=== PATIENT | male | born 1955 | race Caucasian/White ===

== ENCOUNTER 2017-09-02 14:42 | Inpatient (IN) | payer MEDICARE ==
[~2017-09-02] VITALS: Ht 167.6 cm; Wt 87.1 kg
[2017-09-02 14:46] VITALS: BP 169/85
[2017-09-02] MEDS ORDERED: OXYCONTIN20 M1 PO (15:08)
[2017-09-02] MEDS ORDERED: LIORESAL 10 MG10 MG PO (15:09)
[2017-09-02] MEDS ORDERED: ALBUTEROL2.5 MG/31 INH (15:09)
[2017-09-02] MEDS ORDERED: AZITHROMYCIN 2250 MG PO (15:10)
[2017-09-02] MEDS ORDERED: ZOLOFT50 MG PO (15:10)
[2017-09-02] MEDS ORDERED: TRAMADOL 50 MG50 MG PO (15:10)
[2017-09-02] MEDS ORDERED: LYRICA 75 MG CA75 MG PO (15:11)
[2017-09-02] MEDS ORDERED: FLEXERIL PO (15:11)
[2017-09-02] MEDS ORDERED: PREDNISONE 20 M20 MG PO (15:11)
[2017-09-02] MEDS ORDERED: ZESTRIL20 MG PO (15:12)
[2017-09-02] MEDS ORDERED: HYDROCHLOROTHIA25 M2 PO (15:12)
[2017-09-02] MEDS ORDERED: CEFDINIR300 MG PO (15:14)
[2017-09-02] MEDS ORDERED: SYMBICORT160 MCG/4. INH (15:17)
[2017-09-02] MEDS ORDERED: BREO ELLIPTA 21 EACH INH (15:17)
[2017-09-02 15:21] LABS: HEMATOCRIT 39.4 % (42.0-52.0); HEMOGLOBIN 13.1 gm/dL (14.0-18.0); MCH 32.3 pg (26.0-34.0); MCHC 33.2 g/dL (28.0-37.0); MCV 97.1 fL (80.0-100.0); MPV 7.7 fl. (7.2-11.1); NUCLEATED RBCS 0 /100WBC; PLATELET COUNT* 349 thou/uL (150-400); RBC 4.06 mil/uL (4.50-6.00); RDW-CV 13.9 % (10.5-14.5); WBC 14.6 thou/uL (4.0-11.0)
[2017-09-02 15:32] LABS: ANION GAP 8 mmol/L (7-16); BUN 16 mg/dL (7-18); CALCIUM 9.6 mg/dL (8.5-10.1); CHLORIDE 98 mmol/L (98-107); CO2 33 mmol/L (21-32); CREATININE 0.9 mg/dL (0.6-1.3); GLUCOSE 180 mg/dL (70-99); POTASSIUM 4.2 mmol/L (3.5-5.1); SODIUM 139 mmol/L (136-145)
[2017-09-02 15:40] LABS: APTT 25.9 Seconds (25.0-31.3); PROTIME 9.9 Seconds (9.20-11.50)
[2017-09-02 15:44] LABS: ALBUMIN 3.7 g/dL (3.4-5.0); ALKALINE PHOSPHATASE 68 U/L (46-116); NT-PRO BRAIN NAT PEPTIDE 17 pg/mL (<300); SGOT 23 U/L (15-37); SGPT 44 U/L (30-65); TOTAL BILIRUBIN 0.2 mg/dL (<0.1-1.0); TOTAL PROTEIN 7.8 g/dL (6.4-8.2); TROPONIN-I LEVEL <0.06 ng/mL (<0.06)
[2017-09-02 16:01] LABS: ABSOLUTE LYMPHOCYTES 1.2 thou/uL (0.8-5.3); ABSOLUTE MONOCYTES 0.4 thou/uL (0.0-1.2); PLATELET ESTIMATE ADEQUATE
[2017-09-02 17:00] VITALS: BP 162/97
[2017-09-02 17:16] LABS: HCO3 30.2 mmol/L (22.0-26.0)
[2017-09-02 18:03] VITALS: BP 144/119
[2017-09-02 18:32] LABS: PCO2 52.2 mmHg (35.0-45.0); PO2 167.5 mmHg (75.0-100.0)
[2017-09-02 20:00] VITALS: BP 137/108
[2017-09-03] VITALS: BP 179/80
[2017-09-03 04:00] VITALS: BP 131/77
[2017-09-03 04:06] LABS: GLYCOHEMOGLOBIN (HGB A1C) 6.6 % (4.8-5.6)
[2017-09-03 05:22] LABS: HEMATOCRIT 36.7 % (42.0-52.0); HEMOGLOBIN 12.2 gm/dL (14.0-18.0); MCH 32.3 pg (26.0-34.0); MCHC 33.2 g/dL (28.0-37.0); MCV 97.3 fL (80.0-100.0); MPV 8.9 fl. (7.2-11.1); RBC 3.77 mil/uL (4.50-6.00); WBC 14.2 thou/uL (4.0-11.0)
[2017-09-03 05:31] LABS: CALCIUM 9.1 mg/dL (8.5-10.1); CREATININE 0.7 mg/dL (0.6-1.3); MAGNESIUM 1.5 mg/dL (1.8-2.4)
[2017-09-03 07:55] VITALS: BP 149/82
[2017-09-03 11:46] VITALS: BP 140/76
--- NOTE | 2017-09-03 14:01 | EKG ---
[place] [address] ELECTROCARDIOGRAM REPORT Name: CLARKMELISSAHUMA Gonzalez SR Room: [address] ADM IN M.R.#: [id number] Admission: 09/02/17 Attend Phys: Lalo Sousa MD Discharge: Date of : 51 Report #: [id number] THIS REPORT FOR: //name// [facility] ED Test Date: 2017-09-02 Test Time: 14:53:28 Pat Name: MELISSA CLARK Department: Room: [address] Gender: M Press Tender Smoke Signal: Patti GILBERT : 1955 Requested By: Mell Summers Order Number: [id number] Edwin MD: Owen El Measurements Intervals [place] Rate: 88 P: 63 MD: 139 QRS: 48 QRSD: 77 T: 52 QT: 332 QTc: 402 Interpretive Statements Sinus rhythm Baseline wander in lead(s) V2,V3,V4 No previous ECG available for comparison Electronically Signed On 09-03-2017 14:01:03 CDT by Owen El [email or web address] <ELECTRONICALLY SIGNED> By: Owen El MD, [facility] 09/03/17 1401 1453 1453 Owen El MD, [facility] /EPI
[2017-09-03 15:41] VITALS: BP 110/54
[2017-09-03 23:57] VITALS: BP 119/55
[2017-09-04 04:29] VITALS: BP 133/70
[2017-09-04 05:43] LABS: ABSOLUTE LYMPHOCYTES 0.6 thou/uL (0.8-5.3); ABSOLUTE MONOCYTES 0.1 thou/uL (0.0-1.2); ABSOLUTE NEUTROPHILS 12.3 thou/uL (1.6-8.1); BASOPHILS 0.1 %; HEMATOCRIT 33.8 % (42.0-52.0); HEMOGLOBIN 11.1 gm/dL (14.0-18.0); LYMPHOCYTES 4.7 %; MCH 31.7 pg (26.0-34.0); MCHC 32.8 g/dL (28.0-37.0); MCV 96.8 fL (80.0-100.0); MONOCYTES 0.8 %; MPV 7.7 fl. (7.2-11.1); NUCLEATED RBCS 0 /100WBC; PLATELET COUNT* 294 thou/uL (150-400); POLYS 94.4 %; RDW-CV 13.8 % (10.5-14.5); WBC 13.1 thou/uL (4.0-11.0)
[2017-09-04 05:57] LABS: BE 1.7 mmol/L (-2 to +3); PCO2 45.2 mmHg (35.0-45.0); PO2 102.3 mmHg (75.0-100.0); pH 7.394 (7.340-7.450)
[2017-09-04 07:20] VITALS: BP 122/86
[2017-09-04 11:31] VITALS: BP 128/80
[2017-09-04 15:23] VITALS: BP 121/52
[2017-09-04 16:00] VITALS: BP 136/66
[2017-09-04 20:00] VITALS: BP 136/67
[2017-09-05 04:00] VITALS: BP 118/55
[2017-09-05 08:00] VITALS: BP 128/63
[2017-09-05 12:02] VITALS: BP 117/55
[2017-09-05 16:14] VITALS: BP 108/53
[2017-09-05 20:20] VITALS: BP 146/71
[2017-09-06 00:10] VITALS: BP 104/75
[2017-09-06 04:00] VITALS: BP 157/77
[2017-09-06 07:58] VITALS: BP 145/71
[2017-09-06] MEDS ORDERED: LEVAQUIN 750 M750 MG PO (10:02)
[2017-09-06] MEDS ORDERED: PREDNISONE 10 M10 MG PO (10:03)
[2017-09-06 10:12] VITALS: BP 145/71
--- NOTE | 2017-09-06 10:18 | CON ---
[address] [address] CONSULTATION Name: MELISSA CLARK SR Room: [address] IN .R.#: [id number] Admission: 09/02/17 Attend Phys: Lalo Sousa MD Discharge: Date of : 51 Report #: [id number] THIS REPORT FOR: //name// CC: Lalo Buckley DO DATE OF SERVICE: 09/03/2017 REFERRING PHYSICIAN: Laol Sousa MD CHIEF COMPLAINT: Acute onset of respiratory distress/failure. HISTORY OF PRESENT ILLNESS: The patient is a 62-year-old male who had been disabled for quite some time as a result of his underlying pulmonary condition. He presented to the Emergency Room. He had been having increasing shortness of breath 2-3 days prior to admission. He had been on steroid therapy, but this was to no avail. I could not elicit any other symptomatology, at that point he was denying cough, phlegm production, fever or chills. PAST MEDICAL HISTORY: Obesity, abdominal wall hernia, chronic obstructive airways disease, chronic hypercapnia, anxiety and chronic back pain. ALLERGIES: None known. MEDICATIONS: Prior to admission include OxyContin, Beclovent, aerosol treatments with DuoNeb, Zithromax, tramadol, Flexeril, prednisone, lisinopril, hydrochlorothiazide, Omnicef, and Symbicort. FAMILY HISTORY: The patient does not report any significant family ailments. PHYSICAL EXAMINATION: VITAL SIGNS: Blood pressure 140/76, respiratory rate 16 and slightly labored. He is not pursued lip breathing. There are no obvious accessory muscle usage. Pulse rate 94 and regular, temperature 98 degrees. His weight 189 pounds. GENERAL APPEARANCE: Awake, alert, oriented. HEENT: Head is atraumatic. EYES: Pupils are round and equal, reactive. Oral cavity moist, no lesions. NECK: No adenopathy or JVD. CHEST: Reveals scattered end-expiratory wheezes. Breath sounds are markedly diminished. CARDIOVASCULAR: Regular rhythm. No murmurs or rubs. ABDOMEN: Protuberant, no tenderness or guarding. Umbilical hernia is noted. There does not appear to be any evidence of extreme weakness with bowel within the week and diarrhea. EXTREMITIES: Negative for edema. [place] [address] CONSULTATION Name: MELISSA CLARK Carlos Room: [address]#: [id number] Admission: 09/02/17 Attend Phys: Lalo Sousa MD Discharge: Date of : 51 Report #: [id number] SKIN: Warm and dry, no rash. NEUROLOGIC: Pulses equal bilaterally. LYMPHATICS: Negative. LABORATORY DATA: Sodium 139, potassium 4.0, chloride 101, CO2 of 29, BUN of 13, creatinine 0.7. Hemoglobin and hematocrit are 12 and 37; white count 14,000. Arterial blood gases on 2 liters O2 nasal cannula, pH 7.38, pCO2 of 52, pO2 of 168 with a bicarbonate of 30. Chest x-ray, slight increase in the diaphragm on the right side. There are no acute infiltrates. IMPRESSION: 1. Exacerbation of chronic obstructive pulmonary disease. 2. Acute hypercapnic respiratory failure. 3. Obesity. 4. Abdominal wall hernia. 5. Polyneuropathy of his lower extremities. 6. History of diabetes. 7. Tobacco abuse. RECOMMENDATION: Aspiration precautions will be initiated. We will continue the patient on his steroid therapy, montelukast, DuoNeb aerosol treatments. A formoterol and budesonide will be ordered as well. <ELECTRONICALLY SIGNED> By: Margaret Frances MD 09/06/17 1018 1318 1438Aljustin Mcghee MD /nt
== END 2017-09-06 11:20 | disposition home or self-care (01) | DRG 871 ==
LOC: M.ERS 14:42 → M.2W 16:25 → M.TBA-ER 16:25 → M.2W 17:24
PROVIDERS: Personal Emergency Response Attendant; ADMIT Internal Medicine
PROC: 5A09357 Assistance with Respiratory Ventilation, Less than 24 Consecutive Hours, Continuous Positive Airway Pressure (ICD-10-PCS; principal; 2017-09-02)
PROC: 5A09357 Assistance with Respiratory Ventilation, Less than 24 Consecutive Hours, Continuous Positive Airway Pressure (ICD-10-PCS; 2017-09-04)
DX: A41.9 Sepsis, unspecified organism (principal); J18.9 Pneumonia, unspecified organism; J96.21 Acute and chronic respiratory failure with hypoxia; J96.22 Acute and chronic respiratory failure with hypercapnia; J44.1 Chronic obstructive pulmonary disease with (acute) exacerbation; J44.0 Chronic obstructive pulmonary disease with (acute) lower respiratory infection; F41.9 Anxiety disorder, unspecified; I10 Essential (primary) hypertension; G89.29 Other chronic pain; E66.9 Obesity, unspecified; E11.42 Type 2 diabetes mellitus with diabetic polyneuropathy; K46.9 Unspecified abdominal hernia without obstruction or gangrene; F17.210 Nicotine dependence, cigarettes, uncomplicated; Z68.31 Body mass index [BMI] 31.0-31.9, adult; Z90.49 Acquired absence of other specified parts of digestive tract; Z79.51 Long term (current) use of inhaled steroids; Z79.899 Other long term (current) drug therapy

== ENCOUNTER 2018-03-06 21:10 | Emergency (ER) | payer MEDICARE ==
[~2018-03-06] VITALS: Ht 167.6 cm; Wt 88.5 kg
[~2018-03-06 21:10] MED LIST: ALBUTEROL2.5 MG/31 INH; AZITHROMYCIN 2250 MG PO; BREO ELLIPTA 21 EACH INH; CEFDINIR300 MG PO; FLEXERIL PO; HYDROCHLOROTHIA25 M2 PO; LEVAQUIN 750 M750 MG PO; LIORESAL 10 MG10 MG PO; LYRICA 75 MG CA75 MG PO; OXYCONTIN20 M1 PO; PREDNISONE 10 M10 MG PO; PREDNISONE 20 M20 MG PO; SYMBICORT160 MCG/4. INH; TRAMADOL 50 MG50 MG PO; ZESTRIL20 MG PO; ZOLOFT50 MG PO
[2018-03-06] MEDS ORDERED: LIORESAL 10 MG10 MG PO (21:17)
[2018-03-06] MEDS ORDERED: STRATTERA40 MG PO (21:19)
[2018-03-06 21:37] LABS: ABSOLUTE BASOPHILS 0.2 thou/uL (0.0-0.2); ABSOLUTE EOSINOPHILS 0.2 thou/uL (0.0-0.7); ABSOLUTE LYMPHOCYTES 1.7 thou/uL (0.8-5.3); ABSOLUTE MONOCYTES 0.9 thou/uL (0.0-1.2); ABSOLUTE NEUTROPHILS 11.1 thou/uL (1.6-8.1); BASOPHILS 1.3 %; EOSINOPHILS 1.5 %; HEMATOCRIT 33.4 % (42.0-52.0); LYMPHOCYTES 12.3 %; MCH 31.8 pg (26.0-34.0); MCV 96.3 fL (80.0-100.0); MONOCYTES 6.3 %; MPV 7.8 fl. (7.2-11.1); NUCLEATED RBCS 0 /100WBC; PLATELET COUNT* 350 thou/uL (150-400); POLYS 78.6 %; RBC 3.47 mil/uL (4.50-6.00); RDW-CV 14.1 % (10.5-14.5); WBC 14.2 thou/uL (4.0-11.0)
[2018-03-06 21:47] LABS: ANION GAP 4 mmol/L (7-16); BUN 20 mg/dL (7-18); CALCIUM 9.3 mg/dL (8.5-10.1); CHLORIDE 100 mmol/L (98-107); CO2 32 mmol/L (21-32); CREATININE 0.8 mg/dL (0.6-1.3); GLUCOSE 128 mg/dL (70-99); PROTIME 10.6 Seconds (9.20-11.50); SODIUM 136 mmol/L (136-145)
[2018-03-06 21:58] LABS: ALBUMIN 3.5 g/dL (3.4-5.0); ALKALINE PHOSPHATASE 61 U/L (46-116); LIPASE 79 U/L (73-393); NT-PRO BRAIN NAT PEPTIDE 123 pg/mL (<300); SGOT 22 U/L (15-37); SGPT 37 U/L (30-65); TOTAL BILIRUBIN 0.1 mg/dL (<0.1-1.0); TOTAL PROTEIN 7.6 g/dL (6.4-8.2); TROPONIN-I LEVEL <0.06 ng/mL (<0.06)
[2018-03-06 22:16] LABS: URINE BILIRUBIN NEGATIVE (Negative); URINE BLOOD NEGATIVE (Negative); URINE CLARITY CLEAR; URINE COLOR YELLOW; URINE GLUCOSE-RANDOM NEGATIVE (Negative); URINE KETONES NEGATIVE (Negative); URINE LEUKOCYTES-REFLEX NEGATIVE (Negative); URINE NITRITE-REFLEX NEGATIVE (Negative); URINE PROTEIN NEGATIVE (Negative); URINE UROBILINOGEN 0.2 E.U./dl (0.2-1.0)
[2018-03-06] MEDS ORDERED: AZITHROMYCIN 2250 MG PO (23:31)
[2018-03-06 23:45] VITALS: BP 153/70
--- NOTE | 2018-03-07 18:06 | EKG ---
[place] [address] ELECTROCARDIOGRAM REPORT Name: CLARKMELISSAHUMA Gonzalez SR Room: [facility]#: [id number] Admission: 03/06/18 Attend Phys: Discharge: 03/06/18 Date of : 51 Report #: [id number] THIS REPORT FOR: //name// [facility] ED Test Date: 2018-03-06 Test Time: 21:14:51 Pat Name: MELISSA CLARK Department: Room: Gender: M Cardiac Tech: DARLENE : 1955 Requested By: Dahlia Bauer Order Number: [id number] MD: Poncho Givens Measurements Intervals [place] Rate: 80 P: 65 [place]: 167 QRS: 56 QRSD: 84 T: 51 QT: 368 QTc: 425 Interpretive Statements Sinus rhythm Compared to ECG 09/02/2017 14:53:28 No significant changes Electronically Signed On 03-07-2018 18:05:50 CDT by Poncho Givens [email or web address] <ELECTRONICALLY SIGNED> By: Poncho Givens MD, [facility] 03/07/18 1805 13 13 Poncho Givens MD, FACC /EPI
== END 2018-03-06 23:45 | disposition home or self-care (01) ==
LOC: M.ERS 21:10
PROVIDERS: Emergency Medicine
DX: R06.2 Wheezing (principal); T36.8X5A Adverse effect of other systemic antibiotics, initial encounter; J44.9 Chronic obstructive pulmonary disease, unspecified; G89.29 Other chronic pain; I10 Essential (primary) hypertension; Z90.49 Acquired absence of other specified parts of digestive tract; Y92.89 Other specified places as the place of occurrence of the external cause

== ENCOUNTER → 2018-03-18 | Outpatient (CLI) | payer MEDICARE ==
[~2018-03-18] MED LIST changes: +STRATTERA40 MG PO
== END ==
LOC: M.RAD 15:33
DX: J44.9 Chronic obstructive pulmonary disease, unspecified (principal)

== ENCOUNTER 2018-11-05 17:25 | Observation (INO) | payer MEDICARE ==
[~2018-11-05] VITALS: Ht 167.6 cm; Wt 83.9 kg
[~2018-11-05 17:25] MED LIST changes: +OXYCODONE HCL15 MG PO; -OXYCONTIN20 M1 PO
[2018-11-05 17:33] VITALS: BP 153/80
[2018-11-05] MEDS ORDERED: CYMBALTA60 MG PO (17:39)
[2018-11-05 18:09] LABS: ABSOLUTE EOSINOPHILS 0.2 thou/uL (0.0-0.7); ABSOLUTE LYMPHOCYTES 2.2 thou/uL (0.8-5.3); ABSOLUTE MONOCYTES 0.7 thou/uL (0.0-1.2); ABSOLUTE NEUTROPHILS 9.3 thou/uL (1.6-8.1); BASOPHILS 0.4 %; EOSINOPHILS 1.8 %; HEMATOCRIT 36.9 % (42.0-52.0); HEMOGLOBIN 12.2 gm/dL (14.0-18.0); MCH 31.7 pg (26.0-34.0); MONOCYTES 5.7 %; MPV 7.3 fl. (7.2-11.1); NUCLEATED RBCS 0 /100WBC; PLATELET COUNT* 415 thou/uL (150-400); POLYS 74.1 %; RBC 3.85 mil/uL (4.50-6.00); RDW-CV 13.9 % (10.5-14.5); WBC 12.5 thou/uL (4.0-11.0)
[2018-11-05 18:20] LABS: ANION GAP 8 mmol/L (7-16); BUN 16 mg/dL (7-18); CALCIUM 9.5 mg/dL (8.5-10.1); CHLORIDE 95 mmol/L (98-107); CO2 34 mmol/L (21-32); CREATININE 0.7 mg/dL (0.6-1.3); GLUCOSE 118 mg/dL (70-99); SODIUM 137 mmol/L (136-145)
[2018-11-05 18:28] LABS: PROTIME 10.2 Seconds (9.20-11.50)
[2018-11-05 18:29] LABS: ALBUMIN 3.5 g/dL (3.4-5.0); ALKALINE PHOSPHATASE 63 U/L (46-116); MAGNESIUM 1.4 mg/dL (1.8-2.4); SGOT 16 U/L (15-37); SGPT 33 U/L (30-65); TOTAL BILIRUBIN 0.1 mg/dL (<0.1-1.0); TOTAL PROTEIN 7.5 g/dL (6.4-8.2); TROPONIN-I LEVEL <0.06 ng/mL (<0.06)
[2018-11-05 19:05] LABS: URINE BILIRUBIN NEGATIVE (Negative); URINE BLOOD NEGATIVE (Negative); URINE CLARITY CLEAR; URINE COLOR YELLOW; URINE GLUCOSE-RANDOM NEGATIVE (Negative); URINE KETONES NEGATIVE (Negative); URINE LEUKOCYTES-REFLEX NEGATIVE (Negative); URINE NITRITE-REFLEX NEGATIVE (Negative); URINE PROTEIN NEGATIVE (Negative); URINE SPECIFIC GRAVITY 1.025 (1.005-1.030); URINE UROBILINOGEN 0.2 E.U./dl (0.2-1.0)
[2018-11-05 20:25] VITALS: BP 131/68
[2018-11-05 20:40] VITALS: BP 142/52
[2018-11-06] VITALS: BP 124/47
[2018-11-06 04:00] VITALS: BP 124/44
--- NOTE | 2018-11-06 06:37 | NUR ---
PATIENT ARRIVED ON THE FLOOR ABOUT ABOUT 2029. PATIENT ADMISSION HISTORY AND ASSESSMENT WAS COMPLETED CHARTED. PATIENT HAS HAD NO MORE DIZZINESS SINCE ARRIVAL TO THE FLOOR. IV REMAINS SALINE LOCKED. PATIENT IS ON OXYGEN AT 2L AND WEARS IT AT HOME ALMOST ALL OF THE TIME. WILL CONTINUE TO MONITOR.
[2018-11-06 07:00] VITALS: BP 117/44
--- NOTE | 2018-11-06 10:50 | EKG ---
[place] [address] ELECTROCARDIOGRAM REPORT Name: CLARKMELISSA SR Room: [address] M.R.#: [id number] Admission: 11/05/18 Attend Phys: Ada Zaidi MD Discharge: Date of : 51 Report #: [id number] THIS REPORT FOR: //name// [facility] ED Test Date: 2018-11-05 Test Time: 17:47:52 Pat Name: MELISSA CLARK Department: Room: [facility] Gender: M Physical Therapy [facility] 1955 Requested By: Jason Wolf Order Number: [id number] MD: Poncho Givens Measurements Intervals [place] Rate: 78 P: -49 IN: 153 QRS: 26 QRSD: 83 T: 49 QT: 357 QTc: 407 Interpretive Statements Sinus or ectopic atrial rhythm Compared to ECG 03/06/2018 21:14:51 no change Electronically Signed On 11-06-2018 10:50:40 CDT by Poncho Givens [email or web address] <ELECTRONICALLY SIGNED> By: Poncho Givens MD, [facility] 11/06/18 1050 174 46 Poncho Givens MD, [facility] /EPI
--- NOTE | 2018-11-06 11:49 | NUR ---
INITAL ASSESSMENT COMPLETED CHARTED. VSS. TRACING SR ON MONITOR. PT C/O CHRONIC PAIN TO NECK, ARM AND HANDS. MEDICATIONS GIVEN PER EMAR. HOURLY ROUNDING FOR PT SAFETY. CLWR.
[2018-11-06 12:19] VITALS: BP 117/44
[2018-11-06] MEDS ORDERED: MECLIZINE HCL12.5 MG PO (12:27)
== END 2018-11-06 14:10 | disposition home or self-care (01) ==
LOC: M.ERS 17:25 → M.TBA-ER 19:56 → M.2W 19:56
PROVIDERS: Nurse Practitioner Psychiatric/Mental Health; ADMIT Family Medicine
DX: R55 Syncope and collapse (principal); R42 Dizziness and giddiness; R27.0 Ataxia, unspecified; H53.9 Unspecified visual disturbance; E83.42 Hypomagnesemia; F41.9 Anxiety disorder, unspecified; J44.9 Chronic obstructive pulmonary disease, unspecified; I25.10 Atherosclerotic heart disease of native coronary artery without angina pectoris; I10 Essential (primary) hypertension; J96.11 Chronic respiratory failure with hypoxia; Z79.899 Other long term (current) drug therapy; Z87.891 Personal history of nicotine dependence

== ENCOUNTER 2019-11-19 08:06 | Inpatient (IN) | payer MEDICARE ==
[~2019-11-19] VITALS: Ht 167.6 cm; Wt 88.9 kg
[2019-11-19] VITALS (10 sets, daily range): BP systolic 108–165; BP diastolic 52–86
[~2019-11-19 08:06] MED LIST changes: +CYMBALTA60 MG PO; +MECLIZINE HCL12.5 MG PO
[2019-11-19 09:05] LABS: ABSOLUTE LYMPHOCYTES 1.1 thou/uL (0.8-5.3); ABSOLUTE MONOCYTES 0.4 thou/uL (0.0-1.2); BASOPHILS 0.2 %; HEMATOCRIT 36.2 % (42.0-52.0); HEMOGLOBIN 12.2 gm/dL (14.0-18.0); LYMPHOCYTES 8.1 %; MCH 33.5 pg (26.0-34.0); MCHC 33.7 g/dL (28.0-37.0); MCV 99.2 fL (80.0-100.0); MONOCYTES 2.7 %; MPV 7.2 fl. (7.2-11.1); NUCLEATED RBCS 0 /100WBC; PLATELET COUNT* 354 thou/uL (150-400); RBC 3.65 mil/uL (4.50-6.00); RDW-CV 14.2 % (10.5-14.5); WBC 13.5 thou/uL (4.0-11.0)
[2019-11-19 09:17] LABS: PROTIME 10.7 Seconds (9.20-11.50)
[2019-11-19 09:18] LABS: BE 7.1 mmol/L (-2 to +3); PO2 61.5 mmHg (75.0-100.0); pH 7.424 (7.340-7.450)
[2019-11-19 09:20] LABS: PCO2 51.2 mmHg (35.0-45.0)
[2019-11-19 09:41] LABS: CALCIUM 8.7 mg/dL (8.5-10.1); CREATININE 1.1 mg/dL (0.6-1.3); POTASSIUM 4.6 mmol/L (3.5-5.1)
[2019-11-19] MEDS ORDERED: ATIVAN0.5 M1 PO (09:41)
[2019-11-19 09:45] LABS: ALBUMIN 3.4 g/dL (3.4-5.0); TOTAL BILIRUBIN 0.3 mg/dL (<0.1-1.0); TOTAL PROTEIN 7.6 g/dL (6.4-8.2)
--- NOTE | 2019-11-19 12:18 | EKG ---
[place] [address] ELECTROCARDIOGRAM REPORT Name: MELISSA CLARK Room: [place] [address] ADM IN M.R.#: [id number] Admission: 11/19/19 Attend Phys: Torin shannon Sa Discharge: Date of : 51 Date of Service: 11/19/19 0810 Report #: [id number] THIS REPORT FOR: //name// [facility] ED Test Date: 2019-11-19 Test Time: 08:10:16 Pat Name: MELISSA CLARK Department: Room: [facility] Gender: M Stabilizing Machine Operator: SHANTELL : 1955 Requested By: José Dash Order Number: [id number] MD: Poncho Givens Measurements Intervals [place] Rate: 99 P: 71 [place]: 150 QRS: 31 QRSD: 95 T: 29 QT: 321 QTc: 412 Interpretive Statements Sinus tachycardia Multiple premature complexes, supraventricular Baseline wander in lead(s) V1 Compared to ECG 11/05/2018 17:47:52 Ectopic atrial rhythm no longer present Electronically Signed On 11-19-2019 12:18:16 CDT by Poncho Givens [email or web address] <ELECTRONICALLY SIGNED> By: Poncho Givens MD, [facility] 11/19/19 1218 0810 0810 Poncho Givens MD, [facility] /EPI
[2019-11-19 14:48] LABS: BE 0.4 mmol/L (-2 to +3); PCO2 43.9 mmHg (35.0-45.0); PO2 83.9 mmHg (75.0-100.0); pH 7.385 (7.340-7.450)
--- NOTE | 2019-11-19 16:05 | NUR ---
[address] MIRZA REQUESTING WE DISCUSS POSSIBILITY OF MRI WITH IMAGING PT HAS A METAL PLATE IN LFA FROM INJURY IN 2007 1355 DISCUSSED WITH RILEY IN MRI, IT IS POSSIBLE TO TRY, PT IS GIVEN A BALL TO SQUEEZE IF PLATE SHOULD HEAT UP DURING IMAGING PROCESS 1603 DR. MIRZA NOTIFIED, PHYSICIAN TO PUT ORDER IN FOR MRI
[2019-11-20] VITALS (24 sets, daily range): BP systolic 110–149; BP diastolic 54–86
[2019-11-20 02:06] LABS: GLYCOHEMOGLOBIN (HGB A1C) 8.7 % (4.8-5.6)
[2019-11-20 05:48] LABS: HEMATOCRIT 29.7 % (42.0-52.0); MCH 33.8 pg (26.0-34.0); MCHC 34.1 g/dL (28.0-37.0); MCV 99.1 fL (80.0-100.0); MPV 7.1 fl. (7.2-11.1); RBC 2.99 mil/uL (4.50-6.00); RDW-CV 14.3 % (10.5-14.5); WBC 11.7 thou/uL (4.0-11.0)
[2019-11-20 05:53] LABS: HEMOGLOBIN 10.1 gm/dL (14.0-18.0)
[2019-11-20 05:56] LABS: ALBUMIN 2.7 g/dL (3.4-5.0); CALCIUM 8.1 mg/dL (8.5-10.1); CREATININE 0.8 mg/dL (0.6-1.3); MAGNESIUM 1.4 mg/dL (1.8-2.4); PHOSPHORUS* 3.3 mg/dL (2.5-4.9); POTASSIUM 3.9 mmol/L (3.5-5.1)
[2019-11-20 05:57] LABS: CHOLESTEROL 258 mg/dL (<200); HDL CHOLESTEROL 72 mg/dL (>40); LDL CHOLESTEROL 149 mg/dL (<100); SERUM ASSESSMENT Clear; TC:HDL 3.6 Ratio (Not establshd); TRIGLYCERIDE 188 mg/dL (<150); VLDL 38 mg/dL (<40)
--- NOTE | 2019-11-20 06:11 | NUR ---
PT'S NIH SCORE THOUGHOUT SHIFT AT 6. PT PASSED BEDSIDE SWALLOW, PT ABLE TO TAKE PO MEDS AND WATER. FINDINGS REPORTED TO DR MIRZA. DR MIRZA STATED FROM HIS PERSPECTIVE PT COULD START SOFT DIET. PT VERY ANXIOUS AND IMPULSIVE AT START OF SHIFT PULLING OFF LEADS AND DISLODGING IV. PT GIVEN PRN ATIVAN WITH GOOD RESULTS. PT ONLY ABLE TO VOID SITTING ON BEDSIDE COMMODE. PT ABLE TO STAND AND TRANSFER WITH STANDBY ASSISTANCE. BED ALARM ON, CALL LIGHT IN PLACE. NO ACUTE CHANGES DURING SHIFT, WILL CONTINUE TO MONITOR,
--- NOTE | 2019-11-20 09:14 | NUR ---
0730 ASSUMED CARE OF PATIENT. PLEASE SEE DOCUMENTED ASSESSMENT. SEE NIH CHARTING.
--- NOTE | 2019-11-20 10:34 | 2DMMODE ---
[place] [address] 2 D/M-MODE ECHOCARDIOGRAM Name: CLARKMELISSA SIERRA Carlos Room: [address] ADM IN [place]#: [id number] Admission: 11/19/19 Attend Phys: Torin shannon Sa Discharge: Date of : 51 Date of Service: 11/20/19 1033 Report #: [id number] THIS REPORT FOR: cc: Sunny Buckley,Sunny Gonzáles,Poncho Copeland MD [facility] ~ APPROVED REPORT Study performed: 11/20/2019 09:26:37 EXAM: Comprehensive 2D, Doppler, and color-flow Echocardiogram Patient Location: In-Patient Room #: [facility] Status: routine BSA: 1.96 HR: 114 bpm BP: 145/72 mmHg Rhythm: NSR Other Information Study Quality: Fair Indications CVA/TIA Echo Enhancing Agent Indication: Rule out Shunt Agent(s) / Amount(s) Used: Agitated Saline 10 cc 2D Dimensions IVSd: 9.21 (7-11mm) LVOT Diam: 21.18 (18-24mm) LVDd: 53.42 mm PWd: 9.25 (7-11mm) Ascending Ao: 31.06 (22-36mm) LVDs: 29.78 (25-40mm) Aortic Root: 36.17 mm Volumes Left Atrial Volume (Systole) LA ESV Index: 20.80 mL/m2 Aortic Valve AoV Peak Valentin.: 1.41 m/s AO Peak Gr.: 7.97 mmHg LVOT Max P.37 mmHg AO Mean Gr.: 4.21 mmHg LVOT Mean P.55 [place] [address] 2 D/M-MODE ECHOCARDIOGRAM Name: MELISSA CLARK Room: [address] IN .R.#: [id number] Admission: 11/19/19 Attend Phys: Torin shannon Sa Discharge: Date of : 51 Date of Service: 11/20/19 1033 Report #: [id number] LVOT Max V: 1.16 m/s AO V2 VTI: 21.59 cm LVOT Mean V: 0.73 m/s STEFANO (VTI): 3.14 cm2 LVOT V1 VTI: 19.27 cm Mitral Valve E/A Ratio: 0.85 MV Decel. Time: 169.90 ms MV E Max Valentin.: 0.94 m/s MV PHT: 49.27 ms MVA (PHT): 4.47 cm2 TDI E/Lateral E': 7.83 E/Medial E': 9.40 Medial E' Valentin.: 0.10 m/s Lateral E' Valentin.: 0.12 m/s Pulmonary Valve PV Peak Valentin.: 1.18 m/s PV Peak Gr.: 5.56 mmHg Left Ventricle The left ventricle is normal size. endocardium not well visualized making segmental wall motion analysis difficult There is normal left ventricular wall thickness. Left ventricular systolic function is normal. The left ventricular ejection fraction is within the normal range. Grade I - abnormal relaxation pattern. Right Ventricle The right ventricle is normal size. The right ventricular systolic function is normal. Atria The left atrium size is normal. Interatrial septum is intact without evidence of ASD or PFO, although images were technically difficult, therefore a small shunt could not be excluded The right atrium size is normal. Aortic Valve The aortic valve is not well visualized. No aortic regurgitation is present. There is no aortic valvular stenosis. Mitral Valve The mitral valve is normal in structure. There is no mitral valve regurgitation noted. No evidence of mitral valve stenosis. Tricuspid Valve The tricuspid valve is normal in structure. [place] [address] 2 D/M-MODE ECHOCARDIOGRAM Name: MELISSA CLARK SR Room: [address] IN M.R.#: [id number] Admission: 11/19/19 Attend Phys: Torin shannon Sa Discharge: Date of : 51 Date of Service: 11/20/19 1033 Report #: [id number] pressure. Trace tricuspid regurgitation. Pulmonic Valve Pulmonic valve is not well visualized. There is no pulmonic valvular regurgitation. Great Vessels The aortic root is normal in size. IVC is normal in size and collapses >50% with inspiration. Pericardium There is no pericardial effusion. <Conclusion> Left ventricular systolic function is normal. The left ventricular ejection fraction is within the normal range. Interatrial septum is intact without evidence of ASD or PFO, although images were technically difficult, therefore a small shunt could not be excluded <ELECTRONICALLY SIGNED> By: Poncho Givens MD, FACC 11/20/19 1033 1033 1033 Poncho Givens MD, FACC /INF
--- NOTE | 2019-11-20 12:07 | NUR ---
PATIENT IS NOW TELE STATUS. HAS DIURESED POST ANG
--- NOTE | 2019-11-20 12:41 | NUR ---
PATIENT NOW SCORES 0 ON NIH. STATES HE IS UNABLE TO HAVE MRI DUE TO METAL IN HIS LEFT ARM
--- NOTE | 2019-11-20 13:29 | NUR ---
PATIENT STATES THAT HE WAS TOLD NOT TO HAVE MRI'S DUE TO METAL IN HIS LEFT ARM
--- NOTE | 2019-11-20 15:19 | NUR ---
SPEECH SAW PATIENT. PATIENT PASSESS SWALLOW EXCEPT NOT TO USE STRAWS. SEEN BY NEUROLOGIST
--- NOTE | 2019-11-20 16:35 | NUR ---
PATIENT PROGRESSING TOWARDS GOALS. PT IS NOW TELE STATUS. NIH IS FROM 0-2. WORKED WITH THERAPIES. SPEECH THERAPY OKAYED EVERYTHING BUT STRAWS. SINUS TACH. APPETITE FAIR. ON 3LPM NASAL CANNULA. HAS NOT NEEDED BIPAP TODAY. NOW UP IN CHAIR. PATIENT HAS SPPOKEN WITH DAUGHTER AND OTHERS ON PHONE.
--- NOTE | 2019-11-20 18:18 | NUR ---
PATIENT MOVING TO ROOM 211. REPORT TO IGLESIA. PT WILL LET HIS FAMILY KNOW NEW ROOM
--- NOTE | 2019-11-20 19:11 | NUR ---
PT TRANSFERRED FROM ICU TO 211 VIA REPORT. TELEMETRY PLACED, INTERVENTIONS CHANGED. EXIT ALARM ON,
[2019-11-21] VITALS (7 sets, daily range): BP systolic 109–142; BP diastolic 46–69
--- NOTE | 2019-11-21 01:06 | NUR ---
PT ALERT ORIENTED ANXIOUS AND JETTERY. INITAL TELEMETRY SHOWED SR PACS. HR ONE TEENS TO 140S. HS PT GIVEN LORAZEPAM AND OXY. NOTIFIED FOR HR UP TO 140S. INCREASE IN LORAZEPAM. DONE. HR DOWN TO 105-ONE TEENS. WCTM
[2019-11-21 05:26] LABS: HEMATOCRIT 30.9 % (42.0-52.0); HEMOGLOBIN 10.4 gm/dL (14.0-18.0); MCH 33.5 pg (26.0-34.0); MCHC 33.8 g/dL (28.0-37.0); MPV 7.8 fl. (7.2-11.1); RBC 3.12 mil/uL (4.50-6.00); WBC 14.7 thou/uL (4.0-11.0)
[2019-11-21 05:40] LABS: ALBUMIN 2.7 g/dL (3.4-5.0); CALCIUM 8.5 mg/dL (8.5-10.1); CREATININE 0.9 mg/dL (0.6-1.3); MAGNESIUM 1.6 mg/dL (1.8-2.4); PHOSPHORUS* 3.8 mg/dL (2.5-4.9); POTASSIUM 3.5 mmol/L (3.5-5.1)
--- NOTE | 2019-11-21 18:23 | NUR ---
Pt. aox4, vss, sr-st on monitor, asymptomatic, pain under control. no cva residual noted. hourly rounding performed. call light and personal belongnigs placed within reach. pt. in bed, resting with eyes closed, at this time.
[2019-11-22 04:00] VITALS: BP 115/58
[2019-11-22 05:13] LABS: HEMATOCRIT 31.3 % (42.0-52.0); HEMOGLOBIN 10.5 gm/dL (14.0-18.0); MCH 33.3 pg (26.0-34.0); MCHC 33.6 g/dL (28.0-37.0); MCV 98.9 fL (80.0-100.0); MPV 7.5 fl. (7.2-11.1); RBC 3.17 mil/uL (4.50-6.00); WBC 14.5 thou/uL (4.0-11.0)
[2019-11-22 05:57] LABS: ALBUMIN 2.6 g/dL (3.4-5.0); CALCIUM 8.9 mg/dL (8.5-10.1); MAGNESIUM 1.6 mg/dL (1.8-2.4); PHOSPHORUS* 2.7 mg/dL (2.5-4.9)
[2019-11-22 05:59] LABS: POTASSIUM 2.8 mmol/L (3.5-5.1)
[2019-11-22 08:00] VITALS: BP 137/72
[2019-11-22 13:44] VITALS: BP 113/68
[2019-11-22 16:20] VITALS: BP 119/66
--- NOTE | 2019-11-22 18:53 | NUR ---
PT. AOX4, VSS, PAIN UNDER CONTROL, SR ON TELE. SCHEDULED ZANAX ADMINISTERED FOR ANXIETY. HOURLY ROUNDIGN PERFORMED. CALL LIGHT AND PERSONAL BELONGINGS PLACED WITHIN REACH. PT. IN BED, WATHCING TV, IN NO APPARENT DISTRESS AT SHIFT CHANGE.
[2019-11-22 20:00] VITALS: BP 122/72
[2019-11-23] VITALS (7 sets, daily range): BP systolic 97–163; BP diastolic 35–82
[2019-11-23 04:52] LABS: HEMATOCRIT 33.7 % (42.0-52.0); HEMOGLOBIN 11.5 gm/dL (14.0-18.0); MCHC 34.2 g/dL (28.0-37.0); MCV 99.3 fL (80.0-100.0); MPV 7.6 fl. (7.2-11.1); RBC 3.4 mil/uL (4.50-6.00); RDW-CV 14.4 % (10.5-14.5); WBC 14.4 thou/uL (4.0-11.0)
--- NOTE | 2019-11-23 06:05 | NUR ---
PATIENT SLEPT WELL DURING THIS SHIFT. PT ON O2 @ 2 LITERS PER NASAL CANNULA. PT PLACED ON BIPAP AT HS. PT GIVEN PAIN MEDICATION X2 DURING THIS SHIFT. PT IN SR ON CARDIA MONITOR. PT VOIDS DARK YELLOW URINE PER URINAL. PT UP WITH STANDBY TO BATHROOM FOR BOWEL MOVEMENT. PT WITH 2100 BLOOD SUGAR OF 243; LISPRO 10UNITS GIVEN. PT SALINE LOCKED AT THIS TIME. FREQUENTLY USED ITEMS AND CALL LIGHT WITHIN REACH. SIDERAILS UP X2. WILL CONTINUE TO MONITOR.
--- NOTE | 2019-11-23 15:26 | EKG ---
[place] [address] ELECTROCARDIOGRAM REPORT Name: MELISSA CLARK Room: [address] ADM IN M.R.#: [id number] Admission: 11/19/19 Attend Phys: Torin shannon Sa Discharge: Date of : 51 Date of Service: 11/21/19 0340 Report #: [id number] THIS REPORT FOR: //name// [facility] Test Date: 2019-11-21 Test Time: 03:40:44 Pat Name: MELISSA CLARK Department: Room: [address] Gender: M Device Repair Technician: CRESENCIO : 1955 Requested By: Torin Corrigan Order Number: [id number] Edwin MD: Obey Lovett Measurements Intervals [place] Rate: 106 P: 71 IN: 144 QRS: 43 QRSD: 75 T: 45 QT: 313 QTc: 416 Interpretive Statements Sinus tachycardia Multiple PACs Compared to ECG 11/19/2019 08:10:16 No significant change Electronically Signed On 11-23-2019 15:25:58 CDT by Obey Lovett [email or web address] <ELECTRONICALLY SIGNED> By: Obey Lovett MD, [facility] 11/23/19 1525 0340 0340 Obey Lovett MD, [facility] /EPI
--- NOTE | 2019-11-23 15:52 | NUR ---
Pt is A&O. Resides at home alone, Pt states that his in August. Independent. Pt wears 2L home o2 continuous through [employer], Pt also has a cpap and neb. Pt has a cane and walker. Hx of HH. No hx of SNF. Pt plans to dc to his dtr's house at discharge, CM to discuss HH with dtr. Pt to have MRI of head tomorrow. Possible dc to home afterwards. Following.
--- NOTE | 2019-11-23 16:23 | NUR ---
PATIENT TO HAVE MRI HEAD THIS SHIFT PER NEURO, CXR DONE THIS AFTERNOON AND RESULTS PAGED TO DR. SHIPLEY. PATIENTS ABX DC'D PER DR. SHIPLEY FOR CXR RESULTS. UP WITH SBA, VOIDING PER URINAL. 02 2L NC REMAINS IN PLACE. PRN OXY IR GIVEN ORDERED. PATIENT DID NEED PRN DOSE OF XANAX THIS AFTERNOON, PATIENT WAS ANXIOUS AND TEARFUL. MG 1.7, ELEC PROTOCOL IN PLACE.
[2019-11-24 01:52] VITALS: BP 112/50
[2019-11-24 04:46] LABS: HEMATOCRIT 33.8 % (42.0-52.0); HEMOGLOBIN 11.3 gm/dL (14.0-18.0); MCH 32.9 pg (26.0-34.0); MCHC 33.4 g/dL (28.0-37.0); MCV 98.7 fL (80.0-100.0); MPV 7.8 fl. (7.2-11.1); RBC 3.42 mil/uL (4.50-6.00); RDW-CV 13.7 % (10.5-14.5); WBC 17.9 thou/uL (4.0-11.0)
[2019-11-24 04:48] VITALS: BP 128/53
[2019-11-24 07:50] VITALS: BP 130/70
[2019-11-24] MEDS ORDERED: CYMBALTA30 MG PO (08:41)
[2019-11-24] MEDS ORDERED: GLUCOPHAGE1000 MG PO (08:42)
[2019-11-24] MEDS ORDERED: GLIPIZIDE 10 MG10 MG PO (08:42)
[2019-11-24] MEDS ORDERED: PROPRANOLOL 1010 MG PO (08:42)
[2019-11-24] MEDS ORDERED: PLAVIX 75 MG TA75 M1 PO (10:10)
[2019-11-24] MEDS ORDERED: LIPITOR 40 MG T40 M1 PO (10:10)
[2019-11-24] MEDS ORDERED: ASA81BEC PO (10:10)
--- NOTE | 2019-11-24 10:34 | NUR ---
CUTTING AND BONING SUPERVISOR: MET WITH PATIENT THIS AM. PATIENT HAS UNDERSTANDING OF PLAN. EXPECTATION FROM PATIENT IS REHAB AND THEN HOME. HAS MOVEMENT RIGHT ARM, BUT POOR FINGER THUMB COORDINATION.
[2019-11-24 10:48] VITALS: BP 130/70
[2019-11-24 11:40] VITALS: BP 130/70
[2019-11-24 12:02] VITALS: BP 135/63
--- NOTE | 2019-11-24 12:19 | NUR ---
Pt discharging to home today, CM spoke with dtr, in agreement with HH. CM faxed HH referral to [facility] per dtr's request. Dtr to berry picker machine operator and transport around 3pm. Per acute rehab, Pt is too high level of ARU.
--- NOTE | 2019-11-24 15:59 | NUR ---
PATIENT DISCHARGED TO HOME AT THIS TIME. PATIENT DID NOT QUALIFY FOR REHAB, PATIENT SENT HOME WITH HOME HEALTH. POTASSIUM RECHECKED PRIOR TO DC, LEVEL 4.8. PATIENT VERBALIZES UNDERSTANDING OF PAPERWORK AND SCRIPTS SENT TO PREFFERED PHARMACY. NIH SCALE 0 AT DISCHARGE. PATIENT TAKEN OUT WITH ALL BELONGINGS VIA WHEELCHAIR, PATIENT DAUGHTER HERE TO TAKE PATIENT HOME.
--- NOTE | 2019-11-26 17:53 | CON ---
[address] [address] CONSULTATION Name: CLARKMELISSA SIERRA Carlos NUNEZ Room: [address] IN M.R.#: [id number] Admission: 11/19/19 Attend Phys: Torin Davidson Discharge: 11/24/19 Date of : 51 Report #: [id number] THIS REPORT FOR: //name// cc: Sunny Buckley Russell J. DO ~ THIS REPORT FOR: //name// CC: Torin Mims DATE OF SERVICE: 11/19/2019 HISTORY OF PRESENT ILLNESS: This is a 64-year-old male patient who was seen by me because the patient has weakness in both arms. He indicates that it started as a numbness in both arm long time ago. Then, about 2 days ago, he started having weakness in the right arm, which has progressively become worse. It does not appear that he has much weakness in the lower extremities by history, although it looks to me that his legs, especially the right leg is not as strong. He is having a lot of difficulty doing things with the right arm. He also have shortness of breath for which he was admitted. REVIEW OF SYSTEMS: Indicate that he has some anxiety. He said he has some difficulty with walking. He does not qualify it further. It is not clear how long it is going on either. He has respiratory difficulty. He describes some nonspecific visual problem. He has a history of neck surgery in the past. He has chronic difficulty with respiration. That was his relevant 14-point review of system. PAST MEDICAL HISTORY: Positive for neck problem. He is having some pain in the neck, even now. FAMILY HISTORY: Unremarkable. SOCIAL HISTORY: He smoked in the past. PHYSICAL EXAMINATION: Indicate that he is alert. He is responsive. He can follow simple commands. His speech looks intact. His main neurological finding is that he is profoundly weak in the right upper extremity. He is weak in the right lower extremity, but he can move it against gravity. On the left side, it is difficult to tell he does look weak, but I cannot tell for sure. It looks like his position sense is there. His cardiac examinations appear unremarkable. IMPRESSION: This patient's finding is concerning because he has profound weakness of the right arm and he has some symptoms on both sides. He has a prior neck surgery. We need to make sure that there is no neck pathology and we also need to make sure it is not a stroke. He does have [place] [address] CONSULTATION Name: MELISSA CLARK Carlos NUNEZ Room: [address] IN [facility]#: [id number] Admission: 11/19/19 Attend Phys: Torin Davidson Discharge: 11/24/19 Date of : 51 Report #: [id number]. He thinks it was put in about 10 years ago, so I asked the nurses to call radiologist to see if they can do an MRI. Initially, they said they can proceed with it, but subsequently they asked me to order an x-ray of the forearm. I did that for the clearance. If they cleared it, MRI will be the best test for both stroke as well as C-spine problem. If they cannot do that, then it will be difficult to come up with the diagnosis and will be an elaborate for seizure. I will order the x-ray and we will see what they decide. I had talked to the patient about MRI. I told him that even if the radiologist decide to proceed with this MRI and cleared him for MRI, there is no guarantee he will not get the complication. He understands that. He understands the risk with it and he wants to proceed with it. I have talked to the nurses since then and we will see if it can be done or not. Thank you very much for this referral. <ELECTRONICALLY SIGNED> By: Robbie Bearden MD 11/26/19 1753 1617 04Robbie Bearden MD /nt
== END 2019-11-24 16:02 | disposition home health service (06) | DRG 64 ==
LOC: M.ERS 08:06 → M.2W 10:07 → M.ICU 10:07 → M.TBA-ER 10:07 → M.ICU 16:11 → M.2W 11-20 18:19
PROVIDERS: Emergency Medicine; ADMIT Family Medicine; ATTEND Family Medicine
PROC: 5A09357 Assistance with Respiratory Ventilation, Less than 24 Consecutive Hours, Continuous Positive Airway Pressure (ICD-10-PCS; principal; 2019-11-19)
PROC: 5A09357 Assistance with Respiratory Ventilation, Less than 24 Consecutive Hours, Continuous Positive Airway Pressure (ICD-10-PCS; 2019-11-20)
PROC: 5A09357 Assistance with Respiratory Ventilation, Less than 24 Consecutive Hours, Continuous Positive Airway Pressure (ICD-10-PCS; 2019-11-22)
PROC: 5A09357 Assistance with Respiratory Ventilation, Less than 24 Consecutive Hours, Continuous Positive Airway Pressure (ICD-10-PCS; 2019-11-23)
DX: I63.132 Cerebral infarction due to embolism of left carotid artery (principal); J96.21 Acute and chronic respiratory failure with hypoxia; J44.1 Chronic obstructive pulmonary disease with (acute) exacerbation; G81.91 Hemiplegia, unspecified affecting right dominant side; F41.9 Anxiety disorder, unspecified; D64.9 Anemia, unspecified; J30.9 Allergic rhinitis, unspecified; K59.00 Constipation, unspecified; E78.5 Hyperlipidemia, unspecified; G47.33 Obstructive sleep apnea (adult) (pediatric); F32.9 Major depressive disorder, single episode, unspecified; E66.01 Morbid (severe) obesity due to excess calories; M48.02 Spinal stenosis, cervical region; E11.40 Type 2 diabetes mellitus with diabetic neuropathy, unspecified; G89.29 Other chronic pain; Z90.49 Acquired absence of other specified parts of digestive tract; Z68.31 Body mass index [BMI] 31.0-31.9, adult; Z79.899 Other long term (current) drug therapy; Z79.51 Long term (current) use of inhaled steroids; Z88.8 Allergy status to other drugs, medicaments and biological substances; Z99.81 Dependence on supplemental oxygen; Z03.818 Encounter for observation for suspected exposure to other biological agents ruled out; R29.810 Facial weakness

== ENCOUNTER 2020-02-28 20:11 | Inpatient (IN) | payer MEDICARE ==
[~2020-02-28] VITALS: Ht 167.6 cm; Wt 90.7 kg
[~2020-02-28 20:11] MED LIST changes: +ASA81BEC PO; +ATIVAN0.5 M1 PO; +CYMBALTA30 MG PO; +GLIPIZIDE 10 MG10 MG PO; +GLUCOPHAGE1000 MG PO; +LIPITOR 40 MG T40 M1 PO; +PLAVIX 75 MG TA75 M1 PO; +PROPRANOLOL 1010 MG PO
[2020-02-28 20:13] VITALS: BP 142/46
[2020-02-28] MEDS ORDERED: TRELEGY ELLIPT1 EACH INH (20:18)
[2020-02-28 21:33] LABS: HEMATOCRIT 29.1 % (42.0-52.0); HEMOGLOBIN 9.6 gm/dL (14.0-18.0); MCH 32.7 pg (26.0-34.0); MCHC 32.8 g/dL (28.0-37.0); MCV 99.8 fL (80.0-100.0); MPV 7.3 fl. (7.2-11.1); NUCLEATED RBCS 0 /100WBC; PLATELET COUNT* 367 thou/uL (150-400); RBC 2.92 mil/uL (4.50-6.00); RDW-CV 14.8 % (10.5-14.5)
[2020-02-28 21:43] LABS: CALCIUM 9.3 mg/dL (8.5-10.1); CREATININE 1.5 mg/dL (0.6-1.3); POTASSIUM 4.9 mmol/L (3.5-5.1)
[2020-02-28 21:54] LABS: ALBUMIN 3.5 g/dL (3.4-5.0); MAGNESIUM 1.1 mg/dL (1.8-2.4); TOTAL BILIRUBIN 0.3 mg/dL (<0.1-1.0); TOTAL PROTEIN 7.4 g/dL (6.4-8.2)
[2020-02-28 22:11] LABS: ABSOLUTE LYMPHOCYTES 0.1 thou/uL (0.8-5.3); ABSOLUTE MONOCYTES 0.1 thou/uL (0.0-1.2); ABSOLUTE NEUTROPHILS 11.8 thou/uL (1.6-8.1)
[2020-02-28 22:12] LABS: PLATELET ESTIMATE ADEQUATE
[2020-02-28 22:16] LABS: INR 1.1; PROTIME 11.1 Seconds (9.20-11.50)
[2020-02-28 22:22] LABS: BE 1.3 mmol/L (-2 to +3); PCO2 47.7 mmHg (35.0-45.0)
[2020-02-28 22:24] LABS: PO2 188.7 mmHg (75.0-100.0)
[2020-02-29 00:28] VITALS: BP 128/68
[2020-02-29 04:00] VITALS: BP 171/73
[2020-02-29 07:30] VITALS: BP 160/56
[2020-02-29 09:27] LABS: URINE BILIRUBIN NEGATIVE (Negative); URINE BLOOD NEGATIVE (Negative); URINE CLARITY CLEAR; URINE COLOR YELLOW; URINE GLUCOSE-RANDOM 3+ (Negative); URINE KETONES NEGATIVE (Negative); URINE LEUKOCYTES-REFLEX NEGATIVE (Negative); URINE NITRITE-REFLEX NEGATIVE (Negative); URINE PROTEIN NEGATIVE (Negative); URINE SPECIFIC GRAVITY 1.025 (1.005-1.030); URINE UROBILINOGEN 0.2 E.U./dl (0.2-1.0)
[2020-02-29 12:00] VITALS: BP 117/55
[2020-02-29 13:00] LABS: ABSOLUTE LYMPHOCYTES 0.4 thou/uL (0.8-5.3); ABSOLUTE MONOCYTES 0.1 thou/uL (0.0-1.2); ABSOLUTE NEUTROPHILS 11.3 thou/uL (1.6-8.1); BASOPHILS 0.2 %; HEMATOCRIT 28.9 % (42.0-52.0); HEMOGLOBIN 9.5 gm/dL (14.0-18.0); LYMPHOCYTES 3.5 %; MCH 32.9 pg (26.0-34.0); MCHC 32.8 g/dL (28.0-37.0); MCV 100.1 fL (80.0-100.0); MONOCYTES 1.1 %; MPV 7.8 fl. (7.2-11.1); NUCLEATED RBCS 0 /100WBC; PLATELET COUNT* 400 thou/uL (150-400); POLYS 95.2 %; RBC 2.89 mil/uL (4.50-6.00); WBC 11.8 thou/uL (4.0-11.0)
[2020-02-29 13:09] LABS: ALBUMIN 3.6 g/dL (3.4-5.0); CALCIUM 8.7 mg/dL (8.5-10.1); CREATININE 1.2 mg/dL (0.6-1.3); MAGNESIUM 2.5 mg/dL (1.8-2.4); POTASSIUM 4.1 mmol/L (3.5-5.1); TOTAL BILIRUBIN 0.3 mg/dL (<0.1-1.0); TOTAL PROTEIN 6.8 g/dL (6.4-8.2)
[2020-02-29 16:00] VITALS: BP 139/67
--- NOTE | 2020-02-29 18:26 | EKG ---
[place] [address] ELECTROCARDIOGRAM REPORT Name: CLARKMELISSA SIERRA Carols NUNEZ Room: [place] [address] ADM IN M.R.#: [id number] Admission: 02/28/20 Attend Phys: Abhinav Gibbons, Discharge: Date of : 51 Date of Service: 02/28/202017 Report #: [id number] THIS REPORT FOR: //name// [facility] ED Test Date: 2020-02-28 Test Time: 20:18:57 Pat Name: MELISSA CLARK Department: Room: [facility] Gender: M Manager Money: MELANY : 1955 Requested By: Dahlia Bauer Order Number: [id number] MD: Owen El Measurements Intervals [place] Rate: 107 P: 83 AR: 139 QRS: 69 QRSD: 84 T: 28 QT: 312 QTc: 417 Interpretive Statements Sinus tachycardia Atrial premature complex Baseline wander in lead(s) II,III,aVF,V2,V3,V4,V5 Compared to ECG 11/21/2019 03:40:44 Atrial premature complex(es) now present Electronically Signed On 02-29-2020 18:26:38 CDT by Owen El [email or web address] <ELECTRONICALLY SIGNED> By: Owen El MD, FACC 02/29/20 1826 17 17 Owen El MD, FACC /EPI
[2020-02-29 19:50] VITALS: BP 141/70
[2020-03-01] VITALS (7 sets, daily range): BP systolic 84–142; BP diastolic 47–68
[2020-03-01 05:18] LABS: ABSOLUTE LYMPHOCYTES 0.3 thou/uL (0.8-5.3); ABSOLUTE MONOCYTES 0.3 thou/uL (0.0-1.2); ABSOLUTE NEUTROPHILS 12.5 thou/uL (1.6-8.1); HEMATOCRIT 23.8 % (42.0-52.0); HEMOGLOBIN 7.8 gm/dL (14.0-18.0); LYMPHOCYTES 2.4 %; MCH 32.8 pg (26.0-34.0); MCHC 32.7 g/dL (28.0-37.0); MCV 100.1 fL (80.0-100.0); MONOCYTES 2.6 %; MPV 7.6 fl. (7.2-11.1); NUCLEATED RBCS 0 /100WBC; RBC 2.38 mil/uL (4.50-6.00); RDW-CV 15.1 % (10.5-14.5); WBC 13.2 thou/uL (4.0-11.0)
[2020-03-01 05:19] LABS: PLATELET COUNT* 285 thou/uL (150-400)
[2020-03-01 05:39] LABS: MAGNESIUM 2.1 mg/dL (1.8-2.4); POTASSIUM 4.2 mmol/L (3.5-5.1); TOTAL BILIRUBIN 0.2 mg/dL (<0.1-1.0); TOTAL PROTEIN 6.4 g/dL (6.4-8.2)
[2020-03-01 13:56] LABS: HEMATOCRIT 25.7 % (42.0-52.0); HEMOGLOBIN 8.4 gm/dL (14.0-18.0)
[2020-03-01 18:12] LABS: HEMATOCRIT 25.2 % (42.0-52.0); HEMOGLOBIN 8.2 gm/dL (14.0-18.0)
[2020-03-02] VITALS: BP 122/65
[2020-03-02 04:48] LABS: HEMATOCRIT 26.8 % (42.0-52.0); HEMOGLOBIN 8.9 gm/dL (14.0-18.0); MCH 32.5 pg (26.0-34.0); MCHC 33.2 g/dL (28.0-37.0); MCV 97.9 fL (80.0-100.0); RBC 2.74 mil/uL (4.50-6.00); RDW-CV 15.1 % (10.5-14.5); WBC 12.5 thou/uL (4.0-11.0)
[2020-03-02 05:41] LABS: CALCIUM 8.4 mg/dL (8.5-10.1); CREATININE 0.9 mg/dL (0.6-1.3); POTASSIUM 3.8 mmol/L (3.5-5.1)
[2020-03-02 07:46] VITALS: BP 124/67
[2020-03-02 12:45] VITALS: BP 111/55
[2020-03-02 17:01] VITALS: BP 114/49
[2020-03-02 20:00] VITALS: BP 110/77
[2020-03-03] VITALS (8 sets, daily range): BP systolic 126–160; BP diastolic 53–82
[2020-03-03 05:30] LABS: ABSOLUTE EOSINOPHILS 0.3 thou/uL (0.0-0.7); ABSOLUTE LYMPHOCYTES 0.4 thou/uL (0.8-5.3); ABSOLUTE MONOCYTES 0.3 thou/uL (0.0-1.2); ABSOLUTE NEUTROPHILS 9.4 thou/uL (1.6-8.1); BASOPHILS 0.3 %; EOSINOPHILS 2.6 %; HEMATOCRIT 28.6 % (42.0-52.0); HEMOGLOBIN 9.6 gm/dL (14.0-18.0); LYMPHOCYTES 3.8 %; MCH 33.3 pg (26.0-34.0); MCHC 33.7 g/dL (28.0-37.0); MCV 98.9 fL (80.0-100.0); MONOCYTES 3.1 %; MPV 7.7 fl. (7.2-11.1); NUCLEATED RBCS 0 /100WBC; PLATELET COUNT* 254 thou/uL (150-400); POLYS 90.2 %; RBC 2.89 mil/uL (4.50-6.00); RDW-CV 14.7 % (10.5-14.5); WBC 10.4 thou/uL (4.0-11.0)
[2020-03-03 05:46] LABS: CALCIUM 8.9 mg/dL (8.5-10.1); MAGNESIUM 1.8 mg/dL (1.8-2.4)
[2020-03-03] MEDS ORDERED: AZITHROMYCIN 2250 MG PO (11:28)
[2020-03-03] MEDS ORDERED: PREDNISONE 10 M10 MG PO (11:28)
[2020-03-03] MEDS ORDERED: CEFDINIR300 MG PO (11:28)
--- NOTE | 2020-03-03 12:19 | CON ---
[address] [address] CONSULTATION Name: CLARKMELISSA SIERRA Carlos NUNEZ Room: [address] IN [place]Carl[place].#: [id number] Admission: 02/28/20 Attend Phys: Abhinav Gibbons MD Discharge: Date of : 51 Report #: [id number] THIS REPORT FOR: //name// cc: Sunny Buckley Russell J. DO ~ THIS REPORT FOR: //name// DATE OF SERVICE: 02/29/2020 Consult has been requested by Dr. Harris. INDICATION FOR CONSULTATION: [id number] hypoxemic/hypercarbic respiratory failure. HISTORY OF PRESENT ILLNESS: A 64-year-old gentleman with past medical history includes a history of obstructive sleep apnea as well as COPD. The patient is on CPAP, oxygen, as well as prednisone long-term. The patient does have pCO2 retention at his baseline. He is now admitted overnight. Presentation is with increase in shortness of breath. The patient has also had a cough. There is not much sputum. There is no chest pain. He does not have significant increase in upper respiratory complaints. There is some mild swelling of lower extremities, which has not increased significantly. Recently, the patient has had significant diarrhea. There also has been a question regarding whether he has blood in his stools. He has disturbed sleep at night as well as sleepiness during the day. These complaints remain at baseline. He has had an abdominal hernia and does have abdominal distention. The patient is actively bronchospastic at this time. REVIEW OF SYSTEMS: For 12 points is negative except as mentioned above. PAST MEDICAL HISTORY: COPD, sleep apnea, previous echo shows normal left ventricular ejection fraction without elevation in right heart pressures, prednisone, CPAP and oxygen long-term, chronic pain syndrome, abdominal hernia, hand amputation and reattachment, neck surgery, appendectomy, hypertension, stroke with right hand weakness. SOCIAL HISTORY: Extensive history of smoking 2 packs a day up to 3 packs a day at one point, discontinued now after a long period of time, unable to quantify exactly, no known history of heavy alcohol use or illegal drug use. ALLERGIES: LEVAQUIN AND DULOXETINE ARE MENTIONED ALLERGIES. FAMILY HISTORY: Heart disease. CURRENT MEDICATIONS: List in [place] [address] CONSULTATION Name: CLARKMELISSA SIERRA Carlos Room: [address] IN [facility]#: [id number] Admission: 02/28/20 Attend Phys: Abhinav Gibbons MD Discharge: Date of : 51 Report #: [id number] HOME MEDICATIONS: List in All My Data reviewed. PHYSICAL EXAMINATION: GENERAL: Alert, awake and oriented, appears to be significantly short of breath at rest. VITAL SIGNS: Has a pulse of 107 and a blood pressure of 139/67. At the time of my examination, he was breathing around 25. He is afebrile with a temperature of 36.4. He is saturating 98%. He is on 2 liters oxygen via nasal cannula. HEENT: Head is normocephalic and atraumatic. Pupils are equal and reactive. There is no throat erythema. There is no thrush in his throat. He has a narrow airway. NECK: Does not show raised JVP, asymmetry, mass or lymph nodes. CHEST: Symmetrical expansion on inspection and palpation. On auscultation, breath sounds are bilaterally equal, decreased, expirations are prolonged. He has inspiratory as well as expiratory wheezes bilaterally, mostly expiratory wheezes. HEART: Regular. There is mild tachycardia. There is no murmur. ABDOMEN: Distended, nontender. EXTREMITIES: Lower extremities 1+ edema, no calf tenderness. SKIN: Dry and intact. NEUROLOGICAL: Moves all extremities bilaterally equally and spontaneously with no focal deficit identified. LABORATORY DATA: The patient's CTA chest is reviewed. I reviewed both the films as well as the report. This is discussed below in more detail. In summary, there is a questionable filling defect, I am not convinced that there is definite evidence of pulmonary embolism. His changes consistent with COPD. I do not see any pulmonary vascular congestion or infiltrate. The patient's lab work is in All My Data reviewed. Arterial blood gases included in All My Data reviewed. ASSESSMENT AND PLAN: 1. Vmnwq-be-[id number] hypoxemic and hypercarbic respiratory failure. Primarily, it appears the patient is actively bronchospastic, which is the reason for his decompensation. We will switch him over to average volume assured pressure support while asleep. Note that he has a CPAP previously. He is a candidate for Trilogy while asleep long-term. 2. Chronic obstructive pulmonary disease exacerbation. Start Solu-Medrol, which will be the primary therapy for a shortness of breath and remains on nebulized bronchodilators. We will add other agents to assist as indicated. We will add Singulair at bedtime as well. Note that he is on long-term prednisone. 3. Obstructive sleep apnea. See discussion above. 4. Diarrhea/rule out gastrointestinal bleed/rule out Clostridium difficile colitis. His Lactate is elevated, I am not; however, convinced that the patient in fact has sepsis. To me in fact he appears to be mildly fluid overloaded. He is on saline. I did not discontinue at this time, we will repeat labs in the [address] [address] CONSULTATION Name: CLARKMELISSA SR Room: [place] [address] ADM IN M.R.#: [id number] Admission: 02/28/20 Attend Phys: Abhinav Gibbons MD Discharge: Date of : 51 Report #: [id number] morning and then reassess. If his BUN and creatinine are trending downwards, then I will be inclined to discontinue IV fluids in the morning and as long as his BUN and creatinine are stable, I will be inclined to tolerate an elevated lactate level. 5. Edema/evaluation for thromboembolic phenomena. I am not convinced that there is any definite evidence of pulmonary emboli. It appears more likely to me that the findings seen on the CTA chest are due to artifact. I will review further with the radiologist in the morning. In the meantime, I discontinued Xarelto for now, we will reorder tomorrow. If indicated, if doubt remains, then after waiting 48 hours, we can repeat a CTA chest as well. I would also like to look at his right heart and see if there is any change in pressures. A 2D echo is therefore ordered. The venous Dopplers are negative. 6. Obesity. Weight loss is strongly recommended. Thanks for this consultation. <ELECTRONICALLY SIGNED> By: Gopi Ramos MD 03/03/20 [id number] noelle Sutherland
== END 2020-03-03 17:30 | disposition home health service (06) | DRG 177 ==
LOC: M.ERS 20:11 → M.TBA-ER 23:00 → M.2W 23:00
PROVIDERS: Emergency Medicine; Internal Medicine; Internal Medicine Critical Care Medicine; Internal Medicine Gastroenterology; ADMIT Internal Medicine; ATTEND Internal Medicine
PROC: 30233N1 Transfusion of Nonautologous Red Blood Cells into Peripheral Vein, Percutaneous Approach (ICD-10-PCS; principal; 2020-03-01)
DX: J15.6 Pneumonia due to other Gram-negative bacteria (principal); N17.0 Acute kidney failure with tubular necrosis; R65.11 Systemic inflammatory response syndrome (SIRS) of non-infectious origin with acute organ dysfunction; J96.21 Acute and chronic respiratory failure with hypoxia; J96.22 Acute and chronic respiratory failure with hypercapnia; J44.1 Chronic obstructive pulmonary disease with (acute) exacerbation; I69.351 Hemiplegia and hemiparesis following cerebral infarction affecting right dominant side; K92.2 Gastrointestinal hemorrhage, unspecified; G89.29 Other chronic pain; R19.7 Diarrhea, unspecified; E83.42 Hypomagnesemia; G47.33 Obstructive sleep apnea (adult) (pediatric); I12.9 Hypertensive chronic kidney disease with stage 1 through stage 4 chronic kidney disease, or unspecified chronic kidney disease; A08.4 Viral intestinal infection, unspecified; N18.2 Chronic kidney disease, stage 2 (mild); Z20.828 Contact with and (suspected) exposure to other viral communicable diseases; N20.0 Calculus of kidney; D64.9 Anemia, unspecified; K64.9 Unspecified hemorrhoids; Z66 Do not resuscitate; X58.XXXA Exposure to other specified factors, initial encounter; R73.9 Hyperglycemia, unspecified; Z51.5 Encounter for palliative care; Z68.32 Body mass index [BMI] 32.0-32.9, adult; Y93.89 Activity, other specified; Z99.81 Dependence on supplemental oxygen; Z90.89 Acquired absence of other organs; Z79.84 Long term (current) use of oral hypoglycemic drugs; Z79.899 Other long term (current) drug therapy; Z88.1 Allergy status to other antibiotic agents; Y92.89 Other specified places as the place of occurrence of the external cause; Z79.82 Long term (current) use of aspirin; Y99.8 Other external cause status; Z87.311 Personal history of (healed) other pathological fracture